=== PATIENT | male | born 1975 | race African-American/Black ===

== ENCOUNTER 2019-04-10 09:05 | Inpatient (IN) | payer MEDICAID, OTHER ==
[~2019-04-10] VITALS: Ht 175.3 cm; Wt 106.8 kg
[2019-04-10] MEDS ORDERED: LABETALOL 5MG/ML, 20ML ONE (09:47)
[2019-04-10] MEDS ORDERED: ENALAPRILAT 1.25 MG/ML, 1ML ONE (09:47)
[2019-04-10] MEDS ORDERED: LORazepam 2 MG/ML, 1ML IVPush ONE (10:00)
[2019-04-10] MEDS ORDERED: LABETALOL 5MG/ML, 20ML IVPush ONE (10:00)
[2019-04-10] MEDS ORDERED: ENALAPRILAT 1.25 MG/ML, 2ML IV ONE (10:00)
[2019-04-10] MEDS ORDERED: SODIUM CHLORIDE FLUSH 10ML SYR IVF ONE (10:00)
[2019-04-10] MEDS ORDERED: LORazepam 2 MG/ML, 1ML ONE (10:03)
[2019-04-10 10:08] LABS: BASOPHILS # (AUTO) 0.03 x10^3/uL (0-0.1); BASOPHILS % (AUTO) 1 % (0-1); EOSINOPHILS # (AUTO) 0.06 x10^3/uL (0-0.4); EOSINOPHILS % (AUTO) 1 % (1-7); LYMPHOCYTES % (AUTO) 37 % (22-44); MD NO; MEAN CORPUSCULAR HEMOGLOBIN 31.4 pg (27.5-34.5); MEAN CORPUSCULAR HGB CONC 33.9 g/dL (33.2-36.2); MEAN CORPUSCULAR VOLUME 92.4 fL (81-97); MEAN PLATELET VOLUME 8.1 fL (7.4-10.4); MONOCYTES # (AUTO) 0.37 x10^3/uL (0.2-0.8); MONOCYTES % (AUTO) 7 % (2-9); NEUTROPHILS # (AUTO) 2.77 x10^3/uL (1.8-6.8); NEUTROPHILS % (AUTO) 54 % (42-75); PLATELET COUNT 227 x10^3/uL (130-400); RED BLOOD COUNT 5.06 x10^6/uL (4.38-5.82); RED CELL DISTRIBUTION WIDTH 14.6 % (9.4-14.8)
[2019-04-10 10:20] LABS: ALANINE AMINOTRANSFERASE 16 U/L (12-78); ALBUMIN 3.6 g/dL (3.4-5.0); ANION GAP 8 mmol/L (5-15); CALCIUM 8.2 mg/dL (8.5-10.1); CHLORIDE 108 mmol/L (98-107); CREATININE 1.18 mg/dL (0.7-1.3)
[2019-04-10 10:22] LABS: ALKALINE PHOSPHATASE 73 U/L (45-117); BILIRUBIN,TOTAL 0.6 mg/dL (0.2-1.0); TOTAL PROTEIN 7.1 g/dL (6.4-8.2)
--- NOTE | 2019-04-10 11:02 | NUR ---
PT TO MRI
[2019-04-10] MEDS ORDERED: GADOTERATE 10 MMOL/20 ML SYR ONE (11:16)
[2019-04-10] MEDS ORDERED: ASPIRIN 325 MG TABLET EC ONE (12:29)
[2019-04-10] MEDS ORDERED: ASPIRIN 81 MG TABLET CHEW PO ONE (12:30)
[2019-04-10] MEDS ORDERED: ASPIRIN 81 MG TABLET CHEW ONE (12:31)
[2019-04-10] MEDS ORDERED: LEVETIRACETAM 1,500 MG in SODIUM CHLORIDE 0.9% 100 ML IV STA (13:00)
--- NOTE | 2019-04-10 13:00 | NUR ---
PT RESTING IN BED, NO NEURO CHANGES
[2019-04-10] MEDS ORDERED: NICOTINE 14MG/24 HR PATCH.TD24 ONE (13:18)
[2019-04-10] MEDS ORDERED: METOPROLOL TARTRATE 25 MG TABLET ONE (13:19)
[2019-04-10] MEDS: NICOTINE 14MG/24 HR PATCH.TD24 TD SCH (13:21)
[2019-04-10] MEDS ORDERED: TRAZODONE 50MG TABLET PO PRN (13:30)
[2019-04-10] MEDS ORDERED: ONDANSETRON 2MG/ML, 2ML IVPush PRN (13:30)
[2019-04-10] MEDS ORDERED: ACETAMINOPHEN 325 MG TABLET PO PRN (13:30)
[2019-04-10] MEDS ORDERED: GUAIFENESIN/DM 200-20MG, 10ML UDC PO PRN (13:30)
[2019-04-10] MEDS ORDERED: METOPROLOL TARTRATE 25 MG TABLET PO SCH (13:30)
[2019-04-10 13:46] LABS: HCT (SEDRATE) 45.3 % (39.2-51.8)
[2019-04-10 13:52] LABS: ALANINE AMINOTRANSFERASE 18 U/L (12-78); ALBUMIN 3.4 g/dL (3.4-5.0); BILIRUBIN, DIRECT 0.1 mg/dL (0.1-0.2)
[2019-04-10 13:55] LABS: INTERNATIONAL NORMALIZED RATIO 0.93 (0.93-1.1); PROTHROMBIN TIME 9.9 Seconds (9.6-11.5)
[2019-04-10 13:57] LABS: ALKALINE PHOSPHATASE 68 U/L (45-117); BILIRUBIN,INDIRECT 0.5 mg/dL (0.0-2.0); BILIRUBIN,TOTAL 0.6 mg/dL (0.2-1.0); TOTAL PROTEIN 6.7 g/dL (6.4-8.2); TROPONIN I 0.053 ng/mL (0.000-0.045)
--- NOTE | 2019-04-10 14:59 | NUR ---
Family call mother calling from [place] wants a callback.
--- NOTE | 2019-04-10 15:00 | NUR ---
[facility] HOSP AT BEDSIDE FOR EVALUATION
--- NOTE | 2019-04-10 15:13 | NUR ---
PT TO CT
[2019-04-10] MEDS ORDERED: LORazepam 0.5MG TABLET PO PRN (15:30)
[2019-04-10] MEDS ORDERED: POTASSIUM CHLORIDE 20 MEQ TAB.ER.PRT PO ONE (15:30)
[2019-04-10] MEDS ORDERED: LORazepam 2 MG/ML, 1ML IV PRN ×3 (15:30)
[2019-04-10] MEDS ORDERED: LORazepam 1MG TABLET PO PRN ×2 (15:30)
[2019-04-10] MEDS ORDERED: POTASSIUM CHLORIDE 20 MEQ TAB.ER.PRT ONE (16:00)
[2019-04-10] MEDS ORDERED: hydrALAzine 20 MG/ML, 1ML ONE (16:00)
[2019-04-10] MEDS ORDERED: OMNIPAQUE 350 MG/ML, 100ML BOTTLE ONE (16:01)
[2019-04-10] MEDS: hydrALAzine 20 MG/ML, 1ML IVPush PRN (16:01)
--- NOTE | 2019-04-10 16:04 | NUR ---
BACK FROM IMAGING. MEDICATED FOR SBP. NO NEURO CHANGES. REPORT TO CLAIR CARDONA
--- NOTE | 2019-04-10 16:04 | NUR ---
RECEIVED REPORT FROM MARS. PT UPRIGHT ON GURNEY AWAKE & COMFORTABLE, EATING MEAL TRAY PROVIDED, REPORTS "RT ARM STILL A LITTLE WEAK" BUT ABLE TO HOLD FOOD/NAPKIN, NAD, RESPONDS APPROP TO STAFF, COMFORT MEASURES PROVIDED, AT BS, CALL LIGHT WITHIN REACH.
[2019-04-10 16:33] LABS: MICROSCOPIC NOT IND
[2019-04-10 16:38] LABS: CULTURE INDICATED? NO
--- NOTE | 2019-04-10 17:00 | NUR ---
PT REMAINS UPRIGHT ON GURNEY AWAKE & COMFORTABLE, WATCHING TV, SPONTANEOPUS MOVEMENT OF RUE/HOLDING CALL LIGHT, NAD, RESPONDS APPROP TO STAFF, COMFORT MEASURES PROVIDED, AT BS, CALL LIGHT WITHIN REACH.
--- NOTE | 2019-04-10 17:37 | NUR ---
Pt to be admitted to [facility], room 421. Report called to Steffanie.
[2019-04-10 20:09] VITALS: BP 171/118
[2019-04-10] MEDS: APIXABAN 5 MG TABLET PO SCH (20:11)
[2019-04-10] MEDS: LISINOPRIL 20 MG TABLET PO SCH (20:12)
[2019-04-10] MEDS: LEVETIRACETAM 500 MG TABLET PO SCH (20:12)
[2019-04-10] MEDS: METOPROLOL TARTRATE 25 MG TABLET PO SCH (20:12)
[2019-04-10] MEDS: THIAMINE 100MG TABLET PO SCH (20:12)
[2019-04-10] MEDS ORDERED: ATORVASTATIN 80 MG TABLET PO SCH (21:00)
[2019-04-10 23:31] VITALS: BP 162/94
[2019-04-11 00:43] VITALS: BP 165/111
[2019-04-11] MEDS: hydrALAzine 20 MG/ML, 1ML IVPush PRN (02:04)
[2019-04-11 05:45] VITALS: BP 162/100
[2019-04-11] MEDS: METOPROLOL TARTRATE 25 MG TABLET PO SCH (05:56)
[2019-04-11 06:34] LABS: BASOPHILS # (AUTO) 0.03 x10^3/uL (0-0.1); BASOPHILS % (AUTO) 1 % (0-1); EOSINOPHILS # (AUTO) 0.13 x10^3/uL (0-0.4); EOSINOPHILS % (AUTO) 3 % (1-7); LYMPHOCYTES # (AUTO) 2.41 x10^3/uL (1-3.4); LYMPHOCYTES % (AUTO) 50 % (22-44); MD NO; MEAN CORPUSCULAR HEMOGLOBIN 31.5 pg (27.5-34.5); MEAN CORPUSCULAR HGB CONC 34.1 g/dL (33.2-36.2); MEAN CORPUSCULAR VOLUME 92.3 fL (81-97); MEAN PLATELET VOLUME 8.1 fL (7.4-10.4); MONOCYTES % (AUTO) 6 % (2-9); NEUTROPHILS # (AUTO) 1.98 x10^3/uL (1.8-6.8); NEUTROPHILS % (AUTO) 41 % (42-75); PLATELET COUNT 224 x10^3/uL (130-400); RED BLOOD COUNT 4.75 x10^6/uL (4.38-5.82); RED CELL DISTRIBUTION WIDTH 14.3 % (9.4-14.8)
[2019-04-11 06:44] LABS: ANION GAP 7 mmol/L (5-15); CALCIUM 8.5 mg/dL (8.5-10.1); CHLORIDE 108 mmol/L (98-107); CHOLESTEROL, TOTAL 168 mg/dL (140-239); CREATININE 0.89 mg/dL (0.7-1.3); TRIGLYCERIDES 99 mg/dL (50-200); VLDL CHOLESTEROL 20 mg/dL (0-25)
[2019-04-11 06:46] LABS: CHOL/HDL RATIO 5.6; HDL CHOL % 18 % (26-37); HDL CHOLESTEROL (DIRECT) 30 mg/dL (40-60); LDL CHOLESTEROL,CALCULATED 118 mg/dL (54-169); LDL/HDL RATIO 3.9 (0.5-3.0)
[2019-04-11] MEDS ORDERED: POTASSIUM CHLORIDE 20 MEQ TAB.ER.PRT PO ONE (07:30)
[2019-04-11] MEDS ORDERED: SENNA/DOCUSATE TABLET PO SCH (09:00)
[2019-04-11 09:17] VITALS: BP 145/94
[2019-04-11] MEDS: APIXABAN 5 MG TABLET PO SCH (09:33)
[2019-04-11] MEDS: LISINOPRIL 20 MG TABLET PO SCH (09:33)
[2019-04-11] MEDS: THIAMINE 100MG TABLET PO SCH (09:33)
[2019-04-11] MEDS: LEVETIRACETAM 500 MG TABLET PO SCH (09:33)
--- NOTE | 2019-04-11 11:51 | NUR ---
REC REGULAR/THIN; NO DYSPHAGIA INTERVENTION INDICATED AT THIS TIME. Addendum: 04/11/19 at 1152 by Shakira URIBE Amended: Links added.
[2019-04-11 12:22] VITALS: BP 157/112
[2019-04-11 13:22] VITALS: BP 136/90
[2019-04-11] MEDS ORDERED: AMLODIPINE 5 MG TABLET PO SCH (13:30)
[2019-04-11] MEDS ORDERED: METOPROLOL TARTRATE 50 MG TABLET PO SCH (13:30)
[2019-04-11] MEDS: NICOTINE 14MG/24 HR PATCH.TD24 TD SCH (14:21)
[2019-04-11 16:14] VITALS: BP 157/104
[2019-04-11] MEDS ORDERED: METO50TA82 PO (16:59)
[2019-04-11] MEDS ORDERED: AMLO-150 PO (16:59)
[2019-04-11] MEDS ORDERED: APIX5TAB PO (16:59)
[2019-04-11] MEDS ORDERED: LEVE500T53 PO (16:59)
[2019-04-11] MEDS ORDERED: ATOR-2 PO (16:59)
[2019-04-11] MEDS ORDERED: LISI-170 PO (16:59)
== END 2019-04-11 18:16 | disposition home or self-care (01) | DRG 65 ==
LOC: ED 11:45 → EDIP 12:10 → 4WST 17:59
PROVIDERS: ADMIT Internal Medicine; ATTEND Hospitalist
DX: I63.49 Cerebral infarction due to embolism of other cerebral artery (principal); G40.89 Other seizures; I16.1 Hypertensive emergency; I10 Essential (primary) hypertension; R29.702 NIHSS score 2; I48.91 Unspecified atrial fibrillation; F32.9 Major depressive disorder, single episode, unspecified; Z82.5 Family history of asthma and other chronic lower respiratory diseases; F17.210 Nicotine dependence, cigarettes, uncomplicated; E87.6 Hypokalemia; Z91.14 Patient's other noncompliance with medication regimen; Z88.8 Allergy status to other drugs, medicaments and biological substances; Z71.6 Tobacco abuse counseling; Z71.41 Alcohol abuse counseling and surveillance of alcoholic; Z79.899 Other long term (current) drug therapy
CPT/HCPCS: 36415; 70450; 70496; 70498; 70544; 70553; 71045; 80048; 80053; 80061; 80076; 81003; 83735; 83880; 84100; 84439; 84443; 84484; 85025; 85610; 85651; 93005; 93306; 95816; 96374; G0378; J1953; Q9967; A9575; J0360; J2060

== ENCOUNTER 2019-08-18 17:15 | Inpatient (IN) | payer MEDICAID ==
[~2019-08-18] VITALS: Ht 177.8 cm; Wt 108.3 kg
[~2019-08-18 17:15] MED LIST: AMLO-150 PO; APIX5TAB PO; ATOR-2 PO; LEVE500T53 PO; LISI-170 PO; METO50TA82 PO
[2019-08-18] MEDS ORDERED: METO25TA35 PO (17:31)
[2019-08-18] MEDS ORDERED: AMLO-150 PO (17:31)
--- NOTE | 2019-08-18 17:34 | NUR ---
BIB CARE FLIGHT FROM [facility] - PT LIVING IN [facility], CAME TO [place] TO VISIT FRIENDS. STARTED HAVING RIGHT HAND TREMORS, BILAT CHEEK TREMORING AND RIGHT EYE BROW TREMORS. PT STATED HE THOUGHT SYMPTOMS WOULD RESOLVE, AND WAITED TO BE SEEN UNTIL TODAY. TODAY THERE'S NO IMPROVEMENT. PT STATED HAS HAD THIS BEFORE IN MARCH OF 2019, WAS DXd WITH TIA AND SZs. PT A&OX4, DENIED ANY PAIN. PT HOB TO LEVEL OF COMFORT. CHANGED INTO GOWN, PLACED ON MONITOR. IV IN PLACE FROM [place]. BLANKET IN PLACE, TREMORS INTERMITTENT AND INCREASED WITH ACTIVITY, SUCH DURING NEURO EXAM. RESPIRATIONS EVEN AND UNLABORED, SATURATING WELL ON RA. AWAITING ORDERS.
--- NOTE | 2019-08-18 18:04 | NUR ---
DISCUSSION WITH ERMD REGARDING PT'S BP AND CURRENT PLAN. PER ERMD, MED ORDERS COMING. AWAITING MED.
[2019-08-18 18:23] LABS: BASOPHILS # (AUTO) 0.02 x10^3/uL (0-0.1); BASOPHILS % (AUTO) 0 % (0-1); EOSINOPHILS # (AUTO) 0.05 x10^3/uL (0-0.4); EOSINOPHILS % (AUTO) 1 % (1-7); LYMPHOCYTES # (AUTO) 1.83 x10^3/uL (1-3.4); LYMPHOCYTES % (AUTO) 36 % (22-44); MD NO; MEAN CORPUSCULAR HEMOGLOBIN 31.6 pg (27.5-34.5); MEAN CORPUSCULAR HGB CONC 33.9 g/dL (33.2-36.2); MEAN CORPUSCULAR VOLUME 93.2 fL (81-97); MONOCYTES # (AUTO) 0.34 x10^3/uL (0.2-0.8); MONOCYTES % (AUTO) 7 % (2-9); NEUTROPHILS # (AUTO) 2.89 x10^3/uL (1.8-6.8); NEUTROPHILS % (AUTO) 56 % (42-75); PLATELET COUNT 232 x10^3/uL (130-400); RED BLOOD COUNT 5.11 x10^6/uL (4.38-5.82); RED CELL DISTRIBUTION WIDTH 14.8 % (9.4-14.8)
--- NOTE | 2019-08-18 18:28 | NUR ---
PT LAYING RECLINED IN BED WATCHING TELEVISION. NAD NOTED AT THIS TIME. AWAITING MED FROM PHARM.
[2019-08-18 18:34] LABS: ALBUMIN 3.7 g/dL (3.4-5.0); ANION GAP 5 mmol/L (5-15); CALCIUM 8.9 mg/dL (8.5-10.1); CHLORIDE 106 mmol/L (98-107); CREATININE 1.09 mg/dL (0.7-1.3); INTERNATIONAL NORMALIZED RATIO 0.95 (0.93-1.1); PROTHROMBIN TIME 10.1 Seconds (9.6-11.5)
--- NOTE | 2019-08-18 19:18 | NUR ---
PER DR GRUBER, WHEN NICARDIPINE ARRIVES, TITRATE APPROPRIATELY FOR GOAL OF 100 MAP.
--- NOTE | 2019-08-18 19:29 | NUR ---
PT MEDICATED PER EMAR. EVALUATED BY HOSPITALIST. NAD NOTED AT THIS TIME. PT RECLINED TO 30 DEGREES PER PT COMFORT. PT NOW WATCHING TELEVISION. DENIES PAIN. SIDE RAILS UP, CALL LIGHT IN REACH.
[2019-08-18] MEDS ORDERED: ACETAMINOPHEN 325 MG TABLET PO PRN (19:30)
[2019-08-18] MEDS ORDERED: TRAZODONE 50MG TABLET PO PRN (19:30)
[2019-08-18] MEDS ORDERED: GABAPENTIN 300 MG CAPSULE PO PRN (19:30)
[2019-08-18] MEDS ORDERED: morphine SULFATE 10 MG/ML, 1ML IVPush PRN (19:30)
[2019-08-18] MEDS ORDERED: ONDANSETRON 2MG/ML, 2ML IVPush PRN (19:30)
[2019-08-18] MEDS ORDERED: METOPROLOL TARTRATE 50 MG TAB ONE (20:04)
[2019-08-18] MEDS ORDERED: NICOTINE 14MG/24 HR PATCH.TD24 ONE (20:04)
[2019-08-18] MEDS: NICOTINE 14MG/24 HR PATCH.TD24 TD SCH (20:06)
[2019-08-18] MEDS: METOPROLOL TARTRATE 100 MG TAB PO SCH (20:07)
[2019-08-18] MEDS ORDERED: LACTULOSE 10 GM/15 ML UDC PO SCH (21:00)
[2019-08-18] MEDS: LISINOPRIL 20 MG TABLET PO SCH (21:22)
[2019-08-18] MEDS: LEVETIRACETAM 500 MG TABLET PO SCH (21:22)
[2019-08-18] MEDS: ATORVASTATIN 80 MG TABLET PO SCH (21:23)
[2019-08-18] MEDS ORDERED: LACTULOSE 10 GM/15 ML UDC PO PRN (21:30)
[2019-08-18] MEDS ORDERED: OMNIPAQUE 350 MG/ML, 100ML BOTTLE ONE (22:28)
[2019-08-18] MEDS: BACLOFEN 10 MG TABLET PO PRN (23:03)
[2019-08-19 00:42] LABS: AMPHETAMINE SCREEN, URINE Negative (Negative); BARBITURATE SCREEN, URINE Negative (Negative); BENZODIAZEPINE SCREEN, URINE Negative (Negative); CANNABINOID SCREEN, URINE Negative (Negative); COCAINE SCREEN, URINE Negative (Negative); METHADONE SCREEN, URINE Negative (Negative); OPIATE SCREEN, URINE Negative (Negative)
[2019-08-19 04:18] LABS: BASOPHILS # (AUTO) 0.03 x10^3/uL (0-0.1); BASOPHILS % (AUTO) 0 % (0-1); EOSINOPHILS # (AUTO) 0.09 x10^3/uL (0-0.4); EOSINOPHILS % (AUTO) 2 % (1-7); LYMPHOCYTES # (AUTO) 2.74 x10^3/uL (1-3.4); LYMPHOCYTES % (AUTO) 45 % (22-44); MD NO; MEAN CORPUSCULAR HEMOGLOBIN 31.5 pg (27.5-34.5); MEAN CORPUSCULAR HGB CONC 33.6 g/dL (33.2-36.2); MEAN CORPUSCULAR VOLUME 93.7 fL (81-97); MEAN PLATELET VOLUME 7.9 fL (7.4-10.4); MONOCYTES # (AUTO) 0.34 x10^3/uL (0.2-0.8); MONOCYTES % (AUTO) 6 % (2-9); NEUTROPHILS # (AUTO) 2.87 x10^3/uL (1.8-6.8); NEUTROPHILS % (AUTO) 47 % (42-75); PLATELET COUNT 252 x10^3/uL (130-400); RED CELL DISTRIBUTION WIDTH 14.3 % (9.4-14.8)
[2019-08-19 04:36] LABS: ANION GAP 4 mmol/L (5-15); CALCIUM 8.8 mg/dL (8.5-10.1); CHLORIDE 105 mmol/L (98-107)
[2019-08-19 04:40] LABS: CHOL/HDL RATIO 4.7; CHOLESTEROL, TOTAL 145 mg/dL (140-239); CREATININE 1.07 mg/dL (0.7-1.3); HDL CHOL % 21 % (26-37); HDL CHOLESTEROL (DIRECT) 31 mg/dL (40-60); LDL CHOLESTEROL,CALCULATED 76 mg/dL (54-169); LDL/HDL RATIO 2.5 (0.5-3.0); TRIGLYCERIDES 188 mg/dL (50-200); VLDL CHOLESTEROL 38 mg/dL (0-25)
[2019-08-19] MEDS: METOPROLOL TARTRATE 100 MG TAB PO SCH ×2 (05:34→17:36)
[2019-08-19] MEDS: LISINOPRIL 20 MG TABLET PO SCH ×2 (08:24→20:01)
[2019-08-19] MEDS: THIAMINE 100MG TABLET PO SCH ×2 (08:24→20:00)
[2019-08-19] MEDS: LEVETIRACETAM 500 MG TABLET PO SCH ×2 (08:25→20:00)
[2019-08-19] MEDS ORDERED: hydrALAzine 20 MG/ML, 1ML IV PRN (09:30)
[2019-08-19 11:40] VITALS: BP 144/83
[2019-08-19 19:54] VITALS: BP 125/85
[2019-08-19] MEDS: ATORVASTATIN 80 MG TABLET PO SCH (20:00)
[2019-08-19] MEDS: NICOTINE 14MG/24 HR PATCH.TD24 TD SCH (20:01)
[2019-08-20 00:18] VITALS: BP 133/86
[2019-08-20] MEDS: BACLOFEN 10 MG TABLET PO PRN ×2 (02:55→13:05)
[2019-08-20] MEDS: METOPROLOL TARTRATE 100 MG TAB PO SCH ×2 (05:52→18:20)
[2019-08-20 07:39] VITALS: BP 132/88
[2019-08-20] MEDS: LISINOPRIL 20 MG TABLET PO SCH ×2 (08:21→20:11)
[2019-08-20] MEDS: LEVETIRACETAM 500 MG TABLET PO SCH ×2 (08:21→20:10)
[2019-08-20] MEDS: THIAMINE 100MG TABLET PO SCH ×2 (08:21→20:11)
[2019-08-20 13:37] VITALS: BP 137/88
[2019-08-20] MEDS: NICOTINE 14MG/24 HR PATCH.TD24 TD SCH (20:10)
[2019-08-20 20:11] VITALS: BP 136/85
[2019-08-20] MEDS: ATORVASTATIN 80 MG TABLET PO SCH (20:11)
[2019-08-21 00:12] VITALS: BP 141/91
[2019-08-21 04:23] VITALS: BP 150/96
[2019-08-21 06:00] LABS: BASOPHILS # (AUTO) 0.03 x10^3/uL (0-0.1); BASOPHILS % (AUTO) 1 % (0-1); EOSINOPHILS # (AUTO) 0.12 x10^3/uL (0-0.4); EOSINOPHILS % (AUTO) 2 % (1-7); LYMPHOCYTES # (AUTO) 2.54 x10^3/uL (1-3.4); LYMPHOCYTES % (AUTO) 42 % (22-44); MD NO; MEAN CORPUSCULAR HEMOGLOBIN 31.4 pg (27.5-34.5); MEAN CORPUSCULAR HGB CONC 33.6 g/dL (33.2-36.2); MEAN CORPUSCULAR VOLUME 93.6 fL (81-97); MEAN PLATELET VOLUME 8.1 fL (7.4-10.4); MONOCYTES # (AUTO) 0.56 x10^3/uL (0.2-0.8); MONOCYTES % (AUTO) 9 % (2-9); NEUTROPHILS # (AUTO) 2.79 x10^3/uL (1.8-6.8); NEUTROPHILS % (AUTO) 46 % (42-75); PLATELET COUNT 231 x10^3/uL (130-400); RED BLOOD COUNT 4.95 x10^6/uL (4.38-5.82); RED CELL DISTRIBUTION WIDTH 14.7 % (9.4-14.8)
[2019-08-21 06:08] LABS: ANION GAP 9 mmol/L (5-15); CALCIUM 8.5 mg/dL (8.5-10.1); CHLORIDE 107 mmol/L (98-107); CREATININE 1.05 mg/dL (0.7-1.3)
[2019-08-21] MEDS: THIAMINE 100MG TABLET PO SCH (08:30)
[2019-08-21] MEDS: LISINOPRIL 20 MG TABLET PO SCH (08:31)
[2019-08-21] MEDS: METOPROLOL TARTRATE 100 MG TAB PO SCH ×2 (08:31→17:50)
[2019-08-21] MEDS: LEVETIRACETAM 500 MG TABLET PO SCH (08:31)
[2019-08-21 08:33] VITALS: BP 130/85
[2019-08-21] MEDS ORDERED: ASPIRIN 81 MG TABLET CHEW PO SCH (09:00)
[2019-08-21] MEDS ORDERED: CLOPIDOGREL 75 MG TABLET PO SCH (09:00)
[2019-08-21 12:16] VITALS: BP 160/111
[2019-08-21] MEDS: BACLOFEN 10 MG TABLET PO PRN (12:22)
[2019-08-21 13:32] VITALS: BP 124/78
[2019-08-21] MEDS ORDERED: CLOP75TA PO (16:26)
[2019-08-21] MEDS ORDERED: BACL-19 PO (16:26)
[2019-08-21] MEDS ORDERED: THIA100T67 PO (16:26)
[2019-08-21] MEDS ORDERED: METO-99 PO ×3 (16:26→17:55)
[2019-08-21] MEDS ORDERED: ASPI-515 PO (16:26)
[2019-08-21] MEDS ORDERED: GABA300C PO (16:26)
== END 2019-08-21 19:50 | disposition home or self-care (01) | DRG 45 ==
LOC: ED 18:04 → EDIP 18:19 → CCU 20:48 → 5SO 08-19 11:30
PROVIDERS: ADMIT Family Medicine; ATTEND Hospitalist
DX: I63.9 Cerebral infarction, unspecified (principal); I11.0 Hypertensive heart disease with heart failure; I50.32 Chronic diastolic (congestive) heart failure; G40.209 Localization-related (focal) (partial) symptomatic epilepsy and epileptic syndromes with complex partial seizures, not intractable, without status epilepticus; I16.1 Hypertensive emergency; F17.210 Nicotine dependence, cigarettes, uncomplicated; E66.9 Obesity, unspecified; G47.33 Obstructive sleep apnea (adult) (pediatric); F10.20 Alcohol dependence, uncomplicated; Z79.82 Long term (current) use of aspirin; Z82.5 Family history of asthma and other chronic lower respiratory diseases; Z86.73 Personal history of transient ischemic attack (TIA), and cerebral infarction without residual deficits; Z68.34 Body mass index [BMI] 34.0-34.9, adult; Z88.8 Allergy status to other drugs, medicaments and biological substances
CPT/HCPCS: 36415; 70496; 70498; 70551; 80048; 80061; 80307; 82040; 82330; 82962; 83735; 85025; 85610; 85730; 87081; 93005; 99291; G0378; Q9967; J2270; J7050